=== PATIENT | female | born 1935 | race Caucasian/White ===

== ENCOUNTER → 2017-04-27 | Outpatient (CLI) | payer MEDICARE, MEDICAID ==
--- NOTE | 2017-04-27 14:23 | ST MOD BARIUM SWALLOW-REFERRAL ---
SUBJECTIVE-DYSPHAGIA Date: 04/27/17 Time: 1300 Eval Type: Initial Certification - Admitted Date: Primary Diagnosis: Reason for Consult: DETERMINE LEAST RESTRICTIVE DIET Pt/Caregiver Concerns: POSSIBLE DIET UPGRADE Onset of symptoms- Symptoms have worsened? NO improved? YES resolved? NO since onset. Current Diet: NPO Is this assessment r/t stroke? No OBJECTIVE COMMUNICATION/COGNITION Barriers to communication/cog? Yes Orientation NEG: Name, Place, Day, Date, Year. Follows Commands POS: Follows 1-step commands. NEG: Follows 2-step commands. Able to remember swallow strategies? No Intelligibility Poor Barriers to communication: Unintelligible speech, difficulty following directions ORAL-MOTOR STRUCTURE/FUNCTION Structure/Function WFL: Labial, Buccal, Lingual, Velar, Mandibular. Facial Asymmetry Right Laryngeal Function Strong: Voluntary Cough. Vocal Quality Normal Dentition Dentures RESPIRATORY STATUS/HISTORY Is resp status/hx a concern? No DYSPHAGIA SIGNS W/CONSISTENCY Any S/S of Dysphagia? Yes VIDEO SWALLOW REPORT Radiologist: Darren Niño MD Level of consciousness: Alert Position (degrees): 90 ORAL STAGE Consistencies used for study: Thin, Vian, Honey, Pudding, Pureed, Mechanical Soft - WFL: Bolus Formation:, Initiation of Swallow:. - No: Antoine.spilled into pharynx, Oral Residue. PHARYNGEAL STAGE Consistencies used for study: Thin, Vian, Honey, Pudding, Pureed, Mechanical Soft Delayed Swallow Reflex? No Epiglottic Closure WFL Penetration-Laryngeal Vestibul Yes - Aspiration? Yes Type During the swallow Consistencies aspirated Thin Pharyngeal Residue? Yes ASSESSMENT/PLAN ASSESSMENT Impression Ms. Heath, an 81 year old female, was referred for a modified barium swallow study by her physician to determine least restrictive diet. Ms. Heath currently lives in a nrusing home with a medical history significant with CVA, advanced dementia, and schizophrenia. 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 She is non- verbal and attempts to communicate where unintelligible. She did show signs of pleasure during eating through facial expressions. Ms. Heath was given the following consistenices: honey, nectar, thins, pudding , pureed, and mechanical soft. The following signs of dysphagia were noted: penetration into laryngeal vestibule with honey, nectar, and thins; aspiration with thin liquids; impaired bolus formation with mechanical soft; and fatigue. It is recommended that Ms. Heath be upgraded to pureed diet with pudding thick liquids. All medications should be crushed and placed in applesauce or pudding. ST at [facility] should follow up for therapy. Thank you for this consult. PLAN SWALLOW GUIDELINES Standard Aspiration Prec., Crush Meds as Allowed Rehab Medicare G Code Plan Medicare/G Code eligible? 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
--- NOTE | 2017-04-27 14:23 | ST MOD BARIUM SWALLOW-REFERRAL ---
SUBJECTIVE-DYSPHAGIA Date: 04/27/17 Time: 1300 Eval Type: Initial Certification - Admitted Date: Primary Diagnosis: Reason for Consult: DETERMINE LEAST RESTRICTIVE DIET Pt/Caregiver Concerns: POSSIBLE DIET UPGRADE Onset of symptoms- Symptoms have worsened? NO improved? YES resolved? NO since onset. Current Diet: NPO Is this assessment r/t stroke? No OBJECTIVE COMMUNICATION/COGNITION Barriers to communication/cog? Yes Orientation NEG: Name, Place, Day, Date, Year. Follows Commands POS: Follows 1-step commands. NEG: Follows 2-step commands. Able to remember swallow strategies? No Intelligibility Poor Barriers to communication: Unintelligible speech, difficulty following directions ORAL-MOTOR STRUCTURE/FUNCTION Structure/Function WFL: Labial, Buccal, Lingual, Velar, Mandibular. Facial Asymmetry Right Laryngeal Function Strong: Voluntary Cough. Vocal Quality Normal Dentition Dentures RESPIRATORY STATUS/HISTORY Is resp status/hx a concern? No DYSPHAGIA SIGNS W/CONSISTENCY Any S/S of Dysphagia? Yes VIDEO SWALLOW REPORT Radiologist: Darren Niño MD Level of consciousness: Alert Position (degrees): 90 ORAL STAGE Consistencies used for study: Thin, [place], Honey, Pudding, Pureed, Mechanical Soft - WFL: Bolus Formation:, Initiation of Swallow:. - No: Antoine.spilled into pharynx, Oral Residue. PHARYNGEAL STAGE Consistencies used for study: Thin, [place], Honey, Pudding, Pureed, Mechanical Soft Delayed Swallow Reflex? No Epiglottic Closure WFL Penetration-Laryngeal Vestibul Yes - Aspiration? Yes Type During the swallow Consistencies aspirated Thin Pharyngeal Residue? Yes ASSESSMENT/PLAN ASSESSMENT Impression Ms. Heath, an 81 year old female, was referred for a modified barium swallow study by her physician to determine least restrictive diet. Ms. Heath currently lives in a nrusing home with a medical history significant with CVA, advanced dementia, and schizophrenia. 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 She is non- verbal and attempts to communicate where unintelligible. She did show signs of pleasure during eating through facial expressions. Ms. Heath was given the following consistenices: honey, nectar, thins, pudding , pureed, and mechanical soft. The following signs of dysphagia were noted: penetration into laryngeal vestibule with honey, nectar, and thins; aspiration with thin liquids; impaired bolus formation with mechanical soft; and fatigue. It is recommended that Ms. Heath be upgraded to pureed diet with pudding thick liquids. All medications should be crushed and placed in applesauce or pudding. ST at SNF should follow up for therapy. Thank you for this consult. PLAN SWALLOW GUIDELINES Standard Aspiration Prec., Crush Meds as Allowed Rehab Medicare G Code Plan Medicare/G Code eligible? 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
--- NOTE | 2017-04-27 15:15 | RADIOLOGY REPORT PS360 ---
ESOPHAGUS W/CINERADIOGRAPHY: 04/27/2017 1:05 PM CLINICAL HISTORY: ORDERING PHYSICIAN: ROMELIA PEREZ PATIENT AGE: 81 years COMPARISON: TECHNIQUE: Patient administered varying consistencies of barium contrast, while viewed in lateral position under real-time fluoroscopy with cine recording. FLUOROSCOPY TIME: 3 minutes and 8 seconds The study was performed in conjunction with speech pathologist. Please see that report & recommendations. FINDINGS: Patient was given varying consistencies of barium. This consisted of honey, nectar, thin, pudding, pureed, mechanical soft. There was laryngeal vestibular penetration with honey, nectar, and thin. There was mild aspiration with thin liquid IMPRESSION: Vestibular penetration and tracheal aspiration as described above Please see speech pathologist report and recommendations.
== END ==
LOC: RAD 13:00
DX: I69.391 Dysphagia following cerebral infarction (principal)
CPT/HCPCS: G8996; G8997; G8998